=== PATIENT | female | born 1990 | race Hispanic/Latino ===

== ENCOUNTER 2022-08-06 08:39 | Emergency (ER) | payer SELFPAY ==
[~2022-08-06] VITALS: Ht 165.1 cm; Wt 81.6 kg
[2022-08-06] MEDS ORDERED: SODIUM CHLORIDE 0.9% 1000ML 1,000 ML IV SCH ×2 (08:45)
[2022-08-06] MEDS ORDERED: ONDANSETRON HCL INJ 2MG/ML 2ML 2 MG/ML VIAL IV STA (08:45)
[2022-08-06] MEDS ORDERED: ONDANSETRON HCL INJ 2MG/ML 2ML 2 MG/ML VIAL ONE (08:59)
[2022-08-06] MEDS ORDERED: SODIUM CHLORIDE 0.9% 1000ML 2,000 ML ONE (08:59)
[2022-08-06 09:00] LABS: BASOPHILS % 0.1 % (0.0-1.0); HEMATOCRIT 30.5 % (34.2-44.1); HEMOGLOBIN 8.7 g/dL (12.0-16.0); LYMPHOCYTES # (AUTO) 1.3 (1.0-3.2); LYMPHOCYTES % 4.1 % (18.0-39.1); MEAN CORPUSCULAR HGB CONC 28.5 g/dL (31-35); MEAN CORPUSCULAR VOLUME 73.5 fL (81-99); MONOCYTES # (AUTO) 2.1 (0.2-0.8); MONOCYTES % 6.7 % (4.4-11.3); NEUTROPHILS # (AUTO) 26.4 (2.1-6.9); NEUTROPHILS % 85.1 % (38.7-80.0); PLATELET COUNT 363 x10e3/uL (140-360); RED BLOOD COUNT 4.15 x10e6/uL (3.6-5.1); RED CELL DISTRIBUTION WIDTH 15.9 % (11.7-14.4)
[2022-08-06 09:09] LABS: INR 0.96; PROTHROMBIN TIME 13.7 seconds (11.9-14.5)
[2022-08-06 09:19] LABS: ALBUMIN 2.9 g/dL (3.5-5.0); ALBUMIN/GLOBULIN RATIO 0.7 (0.8-2.0); ANION GAP 16.8 mmol/L (8-16); CALCIUM 9.4 mg/dL (8.4-10.2); CREATININE, SERUM 0.77 mg/dL (0.57-1.11)
[2022-08-06 09:24] LABS: POTASSIUM 2.8 mmol/L (3.5-5.1)
[2022-08-06] MEDS ORDERED: POTASSIUM CHLORIDE 20 MEQ TAB CR PO STA (09:24)
[2022-08-06] MEDS ORDERED: POTASSIUM CHLORIDE 20MEQ/100ML 100 ML IV ONE (09:30)
[2022-08-06 10:27] LABS: BAND NEUTROPHILS % (MANUAL) 3 %; LYMPHOCYTES % (MANUAL) 4 % (19-48); MONOCYTES % (MANUAL) 6 % (3.4-9.0); NEUTROPHILS % (MANUAL) 87 % (40-74); PLATELET ESTIMATE ADEQUATE; PLATELET MORPHOLOGY COMMENT NORMAL; RBC MORPHOLOGY COMMENT NORMAL
[2022-08-06] MEDS ORDERED: KCL 20 MEQ PACKET/ ORAL SOLN PO ONE (10:30)
[2022-08-06] MEDS ORDERED: CLINDAMYCIN PHOS 900MG/ 50ML 50 ML IV ONE (10:30)
[2022-08-06] MEDS: GENTAMICIN 120MG/NS 100ML 100 ML IV ONE ×2 (10:40→12:40)
[2022-08-06] MEDS ORDERED: SODIUM CHLORIDE 0.9% 500ML 500 ML IV STA (12:02)
[2022-08-06 12:08] LABS: CLARITY,URINE CLEAR (CLEAR); COLOR,URINE YELLOW (YELLOW)
[2022-08-06 12:10] LABS: AMPHETAMINES SCREEN,URINE NEGATIVE (NEGATIVE); BENZODIAZEPINES SCREEN,URINE NEGATIVE (NEGATIVE); KETONES,URINE NEGATIVE (NEGATIVE); LEUKOCYTE ESTERASE ,URINE NEGATIVE (NEGATIVE); NITRITE,URINE NEGATIVE (NEGATIVE); PHENCYCLIDINE SCREEN,URINE NEGATIVE (NEGATIVE); PROTEIN,URINE DIPSTICK NEGATIVE (NEGATIVE); URINE UROBILINOGEN 0.2 mg/dL (0.2 - 1)
[2022-08-06 12:11] LABS: BACTERIA,URINE MANY /HPF; EPITHELIAL CELLS,URINE FEW /LPF; RBC,URINE 0-5 /HPF (0-5); WBC,URINE (MAN) 0-5 /HPF (0-5)
== END 2022-08-06 14:10 | disposition other institution (70) ==
LOC: ER 08:47
DX: R50.9 Fever, unspecified (principal); O03.87 Sepsis following complete or unspecified spontaneous abortion; R42 Dizziness and giddiness; D64.9 Anemia, unspecified
CPT/HCPCS: 36415; 76801; 80053; 80307; 81001; 83605; 84702; 85025; 85610; 86900; 87040; 87086; 87186; 93005; 99285; J1580; J2405; J3480; J7030; 51700

== ENCOUNTER 2023-12-29 15:24 | Emergency (ER) | payer MEDICARE ==
[~2023-12-29] VITALS: Ht 165.1 cm; Wt 90.7 kg
[~2023-12-29 15:24] MED LIST: CEPHALEXIN500 MG PO; MACROBID 100 M100 MG PO
[2023-12-29 15:47] VITALS: O2SAT 100
== END 2023-12-29 15:50 | disposition home or self-care (01) ==
LOC: ER 15:39
DX: O23.593 Infection of other part of genital tract in pregnancy, third trimester (principal); D64.9 Anemia, unspecified
CPT/HCPCS: 99282